=== PATIENT | male | born 1990 | race Caucasian/White ===

== ENCOUNTER → 2020-04-03 13:07 | Outpatient (CLI) | payer OTHER, SELFPAY ==
[2020-04-04 14:54] LABS: Covid-19 Nasal PCR Sendout Lex NOT DETECTED
== END ==
PROVIDERS: Visit Provider Nurse Practitioner Family
DX: Z20.828 Contact with and (suspected) exposure to other viral communicable diseases (principal)
CPT/HCPCS: U0004

== ENCOUNTER 2020-07-23 14:20 | Emergency (ER) | payer OTHER, SELFPAY ==
[2020-07-23 14:45] VITALS: BP 117/86; PULSE 70; RESP 16; TEMP 36.6; O2SAT 100; BMI 28.1
--- NOTE | 2020-07-23 14:57 | HMH.EDUTC ---
[facility] Disposition Clinical Impression: Bronchitis Disposition: Home, Self-Care Condition on Discharge: Good Instructions: Acute Bronchitis, DI for Acute Bronchitis Additional Instructions: Drink plenty of fluids. Take tylenol or ibuprofen for pain or fever. Take the medications as directed. Follow up with your regular doctor. GO TO THE ER FOR ANY WORSENING SYMPTOMS Prescriptions: methylPREDNISolone [Medrol] 4 mg PO DIRECTED 6 Days #21 tab.ds.pk Transmission Status: Received by [id number] Benzonatate [Tessalon Perle 100mg Cap] 100 mg PO TIDP PRN #30 cap PRN Reason: Cough Transmission Status: Received by [id number] Azithromycin [Z-Gerald 250mg Tab*] 250 mg PO UD DOSE PK #6 tab Transmission Status: Received by [id number] Referrals: PCP,No [Primary Care Provider] - Time of Disposition: 15:06 Medical Decision Making - Medical Records Medical records reviewed: No: I reviewed the patient's medical records. - Rocky Inquiry Pt receiving controlled substance: No Vital Signs: 07/23/20 14:45 07/23/20 15:16 Temperature 97.8 F 97.8 F Temperature Source Oral Pulse Rate 70 Pulse Rate [Right Brachial] 70 Respiratory Rate 16 16 Blood Pressure 117/86 Blood Pressure [Right Arm] 117/86 Blood Pressure Mean [Right Arm] 96 Blood Pressure Source [Right Arm] Automatic Cuff Blood Pressure Position [Right Arm] Sitting 02 Sat by Pulse Oximetry 100 Oxygen Delivery Method Room Air Orders (Tests/Meds): ORDERS Category Date Time Status Covid-19 Nasal PCR Sendout Mayur Routine Lab 07/23/20 14:40 Received [facility] HPI - General Stated complaint: soa, cough, chills, loss of appetite, tired, sore Time Seen by Provider: 07/23/20 14:58 Mode of Arrival: Ambulatory Source of Information: Patient Limitations: No Limitations Description of Symptoms (Recalled from Triage Doc. by RN): PATIENT C/O SOA WITH ACTIVITY, CHILLS, COUGH, MUSCLE ACHES, AND LOSS OF APPETITE X 1 MONTH WITH WORSENING OF SYMPTOMS OVER THE LAST FEW DAYS HEENT Symptoms (Recalled from RN notes): Yes Resp Symptoms (Recalled from RN notes): Yes Skin Symptoms (Recalled from RN notes): No MS Symptoms (Recalled from RN notes): Yes Functional Status (Recalled from RN notes): WNL - History of Present Illness Provider Complaint: He states that he has been coughing and feeling bad for the past couple of weeks. 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 - Related Data Previous Rx's Medication Instructions Recorded Azithromycin [Z-Gerald 250mg Tab*] 250 mg PO UD DOSE PK #6 tab 07/23/20 Benzonatate [Tessalon Perle 100mg 100 mg PO TIDP PRN #30 cap 07/23/20 Cap] methylPREDNISolone [Medrol] 4 mg PO DIRECTED 6 Days #21 07/23/20 tab.ds.pk Allergies Allergy/AdvReac Type Severity Reaction Status Date / Time penicillin G [PENICILLIN G] Allergy Mild Verified 07/23/20 15:02 - Worker's Comp Is this a Worker's Comp case?: No [facility] History - Hepatitis A Screen Drug use history?: No High risk sexual behaviors?: No History of sexually transmitted infection?: No Currently employed?: No Childcare worker?: No Do you have indoor plumbing?: Yes Do you have electricity?: Yes Attestation statement:: This patient has been screened for Hepatitis A risk factors. I have reviewed the patient's past medical history: Yes - Social History Alcohol Intake: never Occupational Status: other ROS Obtained: Yes All systems reviewed & no additional complaints - Constitutional Constitutional: Reports system reviewed and no additional complaints, except as docu, Reports chills - Eyes Eyes: Reports system reviewed and no additional complaints, except as docu - ENT Ears, Nose, Mouth, and Throat: Reports system reviewed and no additional complaints, except as docu - Cardiovascular Cardiovascular: Reports system reviewed and no additional complaints, exc
[2020-07-23 15:16] VITALS: BP 117/86; PULSE 70; RESP 16; TEMP 36.6; O2SAT 100
[2020-07-26 06:30] LABS: Covid-19 Nasal PCR Sendout Lex NOT DETECTED
== END 2020-07-23 15:20 | disposition home or self-care (01) ==
PROVIDERS: Emergency Provider Nurse Practitioner Family
DX: Z20.828 Contact with and (suspected) exposure to other viral communicable diseases (principal); J20.9 Acute bronchitis, unspecified
CPT/HCPCS: 99201; U0004

== ENCOUNTER 2020-07-26 11:14 | Emergency (ER) | payer OTHER, SELFPAY ==
--- NOTE | 2020-07-26 11:10 | ECG_ITS ---
APPROVED REPORT Exam: Resting ECG HR:75 bpm ECG Measurements Heart Rate 75 AXES OH 156 P 65 QRSd 88 QRS 111 QT 358 T 50 QTc 399 Conclusion Normal sinus rhythm Right axis deviation Abnormal ECG Electronically signed by : Jeremy Rodriguez, 07/27/2020 07:10:42
[2020-07-26 11:14] VITALS: BP 119/72; BP 155/79; PULSE 75; PULSE 82; RESP 16; RESP 18; TEMP 36.9; O2SAT 97; O2SAT 98; BMI 31.6
--- NOTE | 2020-07-26 11:20 | XR_ITS ---
PROCEDURE: XR CHEST 2V CLINICAL HISTORY: left ant rib pain, cough COMPARISON: No exams were available for comparison FINDINGS: The cardiomediastinal silhouette and pulmonary vascularity are within normal limits. The lungs are clear without infiltrates, suspicious nodules, or pleural effusions. Calcified granuloma is present in the left upper lobe No acute bony abnormalities. IMPRESSION: No acute findings. Dictated by: Glynn Liz MD 07/26/2020 12:26 Glynn Liz MD in [place] 07/26/2020 12:26
--- NOTE | 2020-07-26 11:21 | HMH.EDCP ---
ED Disposition Clinical Impression: Chest wall pain Disposition: Home, Self-Care Condition on Discharge: Good Instructions: DI for Atypical Chest Pain Referrals: Sebas Adam MD [Staff Physician] - 3 days - Critical Care Critical Care Time: No Attestation: On , the high probability of a clinically significant, sudden or life threatening deterioration of the following system(s) required my full and direct attention, intervention and personal management. The time I documented below is in addition to time spent performing reported procedures but includes the following listed in this critical care notation. Medical Decision Making - Medical Records Medical records reviewed: Yes: I reviewed the patient's medical records. - Rocky Inquiry Pt receiving controlled substance: No Vital Signs: 07/26/20 11:14 Temperature 98.5 F Temperature Source Oral Pulse Rate [Left Radial] 75 Respiratory Rate 16 Blood Pressure [Right Arm] 119/72 Blood Pressure Mean [Right Arm] 87 Blood Pressure Source [Right Arm] Automatic Cuff Blood Pressure Position [Right Arm] Sitting 02 Sat by Pulse Oximetry 97 Oxygen Delivery Method Room Air - Lab Data Lab Results 07/26/20 11:24: WBC 15.5 H, RBC 5.07, Hgb 17.0, Hct 49.2, MCV 97.0 H, MCH 33.6 H, MCHC 34.6, RDW 13.2, Plt Count 247, MPV 8.2, Neut % (Auto) 71.5, Lymph % (Auto) 20.7, [place] % (Auto) 6.2, Eos % (Auto) 1.0, Baso % (Auto) 0.6, Neut # (Auto) 11.1 H, Lymph # (Auto) 3.2, [place] # (Auto) 1.0, Eos # (Auto) 0.2, Baso # (Auto) 0.1, Total Counted 100, Neutrophils % (Manual) 67, Lymphocytes % (Manual) 27, Monocytes % (Manual) 5, Eosinophils % (Manual) 1, Platelet Estimate Normal, RBC Morphology Normal 07/26/20 11:24: Sodium 140, Potassium 4.0, Chloride 103, Carbon Dioxide 28, Anion Gap 13.0, BUN 13, Creatinine 1.00, Estimated Creat Clear 169, Estimated GFR 89, Est GFR ( Amer) 108, Glucose 116 H, Calcium 9.6, Total Bilirubin 0.4, AST 33, ALT 64, Alkaline Phosphatase 54, Troponin I 0.01, Total Protein 8.4 H, Albumin 5.0, Globulin 3.4 H, Albumin/Globulin Ratio 1.5, Lipase 270 Result diagrams: 07/26/20 11:24 07/26/20 11:24 Orders (Tests/Meds): ORDERS Category Date Time Status Chest XR 2 view (NOT portable) [XR chest 2V] Stat Exams 07/26/20 11:20 Taken Troponin I Q3H Lab 07/26/20 14:30 Ordered Troponin I Q3H Lab 07/26/20 17:30 Ordered - Radiology Data #1 Image(s): Chest Image Reviewed: Yes I reviewed the patient's radiology image - ECG Data Tracing #1 EKG at 1110 shows a normal sinus rhythm with a rate of 75. No acute ST segment elevation or depression. No hyperacute T waves. Normal intervals. EKG interpreted by me. Medical Decision Narrative: Patient with EKG with no signs of acute ischemia. Troponin is negative at almost 12 hours out, no need for repeat in a patient who is lower risk given age and history. Other labs are reassuring with no signs of acute biliary obstruction or pancreatitis, no significant metabolic derangement or anemia. He does have a slight leukocytosis, but is on steroids. Chest x-ray shows no signs of pneumonia, pneumothorax, florid pulmonary edema. Discharged home to follow-up outpatient with primary care provider for further management and evaluation, consideration of cardiology outpatient consult. Suspect musculoskeletal pain from recent coughing is a possibility in addition to possible dyspepsia. At this point ACS, pulmonary embolus seems unlikely (PERC negative). Chest Pain HPI - General Stated Complaint: chest pain Time Seen by Provider: 07/26/20 11:21 Mode of Arrival: Ambulatory Source of Information: Patient Limitations: No Limitations - History of Present Illness HPI narrative: This is a 29-year-old male with no significant past medical history who presents to the emergency department for evaluation of left anterior rib pain that is worse when he lies down, has been present since around 1:30 AM this morning.
[2020-07-26 11:33] LABS: Basophils # 0.1 K/mm3 (0-0.2); Basophils % 0.6 % (0.1-2.0); Eosinophils # 0.2 K/mm3 (0.0-0.4); Hematocrit 49.2 % (42.0-52.0); Lymphocytes # 3.2 K/mm3 (0.7-4.5); Lymphocytes % 20.7 % (10-50); Mean Corpuscular HGB Conc 34.6 g/dL (31.8-35.4); Mean Corpuscular Hemoglobin 33.6 pg (27.0-31.2); Mean Platelet Volume 8.2 fl (7.4-10.4); Monocytes % 6.2 % (1.7-9.3); Neutrophils # 11.1 K/mm3 (1.8-7.8); Neutrophils % 71.5 % (37.0-80.0); Platelet Count 247 K/mm3 (142-424); Red Blood Count 5.07 M/mm3 (4.60-6.20); Red Cell Distribution Width 13.2 % (11.5-17.5); White Blood Count 15.5 K/mm3 (4.8-10.8)
[2020-07-26 11:35] LABS: Chloride 103 mmol/L (98-107)
[2020-07-26 11:36] LABS: Sodium 140 mmol/L (136-145)
[2020-07-26 11:37] LABS: MANUAL DIFFERENTIAL MANUAL DIFFERENTIAL (MANUAL DIFF)
[2020-07-26 11:38] LABS: Alanine Aminotransferase 64 U/L (12-78); Alkaline Phosphatase 54 U/L (38-126); Aspartate Amino Transferase 33 U/L (17-59); Bilirubin,Total 0.4 mg/dl (0.2-1.3); Blood Urea Nitrogen 13 mg/dl (9-20); Carbon Dioxide 28 mmol/L (22.0-30.0); Creatinine Clearance Estimated 169 mL/min (50-200); Estimated Glomerular Filt Rate 89 ml/min (>60); GFR (African American) 108 ML/MIN (>60)
[2020-07-26 11:39] LABS: Albumin/Globulin Ratio 1.5 (1.1-1.8); Calcium 9.6 mg/dl (8.4-10.2); Globulin 3.4 g/dL (1.3-3.2); Glucose 116 mg/dl (74-100); Lipase 270 U/L (23-300); Total Protein,Serum 8.4 g/dl (6.3-8.2)
[2020-07-26 11:42] LABS: Eosinophils % 1 % (0-3); Lymphocytes % 27 % (10-50); Monocytes % 5 % (2-9); Neutrophils % 67 % (42-76); Platelet Estimate Normal; RBC Morphology Normal; Total Cells Counted 100
[2020-07-26 11:44] VITALS: BP 123/71; PULSE 93; RESP 16; O2SAT 96
[2020-07-26 11:53] LABS: Troponin I 0.01 ng/ml (0.00-0.034)
[2020-07-26 12:33] VITALS: BP 123/71; PULSE 78; RESP 20; TEMP 36.9; O2SAT 96
== END 2020-07-26 12:34 | disposition home or self-care (01) ==
PROVIDERS: Emergency Provider Emergency Medicine
DX: J06.9 Acute upper respiratory infection, unspecified (principal); Z88.0 Allergy status to penicillin
CPT/HCPCS: 71046; 80053; 83690; 84484; 85007; 85025; 93005; 99283

== ENCOUNTER → 2023-06-02 09:19 | Outpatient (CLI) | payer OTHER, SELFPAY ==
--- NOTE | 2023-06-02 09:29 | XR_ITS ---
FINAL REPORT CLINICAL HISTORY: Right foot and ankle pain FINDINGS: RIGHT ANKLE: Three weightbearing views of the right ankle were obtained. There is no acute fracture or dislocation. The joint spaces and mortise are intact. There is no soft tissue abnormality. IMPRESSION: No acute process. Reviewed, Interpreted and Dictated by Fred Salmon III, MD Transcribed by Silvestre Garcia Authenticated and [facility]
--- NOTE | 2023-06-02 09:29 | XR_ITS ---
FINAL REPORT CLINICAL HISTORY: Right foot and ankle pain FINDINGS: 3 weightbearing views of the right foot were obtained. There is no acute fracture or dislocation. The joint spaces are intact. The soft tissues are unremarkable. IMPRESSION: No acute process. Reviewed, Interpreted and Dictated by Fred Salmon III, MD Transcribed by Silvestre Garcia Authenticated and [facility]
== END ==
LOC: RAD 09:20
PROVIDERS: PCP Nurse Practitioner; Visit Provider Nurse Practitioner Family
DX: M25.571 Pain in right ankle and joints of right foot (principal); M79.671 Pain in right foot
CPT/HCPCS: 73610; 73630

== ENCOUNTER 2023-06-04 11:55 | Outpatient (RCR) | payer OTHER, SELFPAY | END 2023-06-04 14:00 | disposition home or self-care (01) | LOC: PT 11:55 | PROVIDERS: Visit Provider Nurse Practitioner Family | DX: M79.671 Pain in right foot (principal); M76.71 Peroneal tendinitis, right leg | CPT/HCPCS: 97760 ==

== ENCOUNTER → 2023-07-23 14:42 | Outpatient (CLI) | payer OTHER, SELFPAY ==
--- NOTE | 2023-07-23 14:42 | MR_ITS ---
FINAL REPORT CLINICAL HISTORY: ankle pain COMPARISON: None FINDINGS: Multiplanar MR imaging of the right ankle was performed without contrast. There is a large signal abnormality in the posterior and medial talus, somewhat rounded in appearance, measuring 2.2 cm in diameter. This abnormal signal extends to the posterior medial talar dome. This is unusual in appearance and of uncertain etiology, but may represent avascular necrosis, osteonecrosis, or a large osteochondral defect. There is also abnormal increased signal in the tarsal navicular midportion, also slightly rounded in appearance, which once again may represent osteochondral defects, subchondral cysts, AVN or osteonecrosis. The ligaments are intact without evidence of injury. The flexor and extensor tendons are intact. The posterior plantar aponeurosis is intact. No significant joint effusion is seen. The musculature is intact. There is no evidence of soft tissue mass or cyst. IMPRESSION: Large signal abnormality in the talus as described, which may represent avascular necrosis, osteonecrosis, or a large osteochondral defect. There is also abnormal increased signal in the midportion of the tarsal navicular, as described. Once again these may represent subchondral cysts, may be degenerative or represent AVN or osteochondrosis. Reviewed, Interpreted and Dictated by Davi Alvarez MD Transcribed by Rosalind Mehta Authenticated and [facility]
--- NOTE | 2023-07-23 14:42 | MR_ITS ---
FINAL REPORT CLINICAL HISTORY: foot pain COMPARISON: None FINDINGS: Multiplanar MR imaging of the right foot was performed without contrast. There are 2 small foci of increased T2 signal in the tarsal navicular midportion, that may represent small subchondral cysts, possibly degenerative, or may be incidental. There is also a large signal abnormality in the posterior medial talus, somewhat rounded in appearance, measuring 2.2 cm in diameter. This extends to the posterior medial talar dome. The flexor and extensor tendons are intact. The musculature is intact. The plantar aponeurosis is intact. No soft tissue mass or cyst is identified. IMPRESSION: 2 small foci of increased T2 signal in the midportion of the tarsal navicular, that may represent small subchondral cysts, or may be incidental. There is also a large signal abnormality in the posterior medial talus, somewhat rounded in appearance, measuring 2.2 cm in diameter as described. This is of uncertain etiology and unusual appearance, but may represent a large osteochondral lesion, avascular necrosis or osteonecrosis. Reviewed, Interpreted and Dictated by Davi Alvarez MD Transcribed by Rosalind Mehta Authenticated and [facility]
== END ==
LOC: RAD 14:42
PROVIDERS: PCP Physician Assistant; Visit Provider Podiatrist
DX: M25.571 Pain in right ankle and joints of right foot (principal); M76.61 Achilles tendinitis, right leg; M79.671 Pain in right foot
CPT/HCPCS: 73718; 73721

== ENCOUNTER 2023-07-30 17:00 | Outpatient (RCR) | payer OTHER, SELFPAY ==
--- NOTE | 2023-06-15 16:00 | HMH.PTOPEV ---
PT Outpatient Evaluation Rehab PT Outpatient Evaluation Start: 06/15/23 15:04 Freq: Status: Active Protocol: Document 06/15/23 15:05 ACECAPO (Rec: 06/15/23 16:00 PDESEROUX [id number]) E-signed By Brian Saxena, PT Outpatient Therapy Subjective History Subjective History Pt. is a 32 year old male who presents to [facility] Outpatient Physical Therapy Services in [place] for the initial evaluation this date(06/15/23) w/ c/o chronic and constant RLE ankle/ft./calf P!, instability, and a limp of insidious onset for 1 year that has progressively gotten worse over the last few weeks. Recent diagnostic imaging indicates pes planus per pt. report. Pt. reports having some symptoms relief w/ CAM bt ., heel wedge, and prescribed Mobic. Pt. reports symptoms worsen w/ prolonged standing and ambulating, basically being on my feet. Pt. 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 Pt. RTMD(Dr. Maldonado) at the end of this month. Current medications include Mobic. PMH includes S/P RLE knee cartilage replacement. New diagnosis of cancer in past 12 No months? Chief Complaint Pain,Spasms,Stiff,Gives out/ Unstable,Weakness Symptom Type Ache,Throb,Sharp,Stabbing, Burning,Shooting Symptoms Relieved By Rest/Positioning,Ice,Brace/ Support,Prescription Meds Symptoms Aggravated By Standing,Bending/Stooping, Physical Activity,Twisting, Walking Prior Functional Limitations None Current Functional Limitations Housework,Standing,Recreation Activity,Walking,Stairs, Bending/Stooping Symptom Description Constant and Continuous, Activity Dependent Level of pain today (0-10) 4 Pain scale - at its best (0-10) 3 Pain scale - at its worst (0-10) 10 Ankle/Foot Eval Gait Observation General Gait Pattern Observation Antalgic Gait,Decrease Weight Bear (R),Decrease Stride Lngth (L) Assistive Device Ambulation Assistive Device None Palpation Tenderness right Ankle/Foot Palpation Findings Tenderness,Trigger Point Ankle/Foot Palpation Overall Comment grade 4 +TTP to B/L gastroc mm bellies, soleus, achilles, post. tib. tendon ATF TTP positive PTF TTP positive CF TTP negative Deltoid ligament TTP negative ROM Ankle/Foot Dorsiflexion w/Knee Extended +6 Active Range Motion (degrees) Ankle/Foot Dorsiflexion w/Knee Extended -3 Passive Range (degrees) Ankle/Foot Plantar Flexion Active Range WNL of Motion (degrees) Ankle/Foot Eversion Active Range of 4 Motion (degrees) Ankle/Foot Eversion Passive Range of 8 Motion (degrees) Ankle/Foot Inversion Active Range of 13 Motion (degrees) Ankle/Foot Inversion Passive Range of 17 Motion (degrees) Ankle/Foot ROM Limitations Soft Tissue Tightness,Muscle Tone,Pain Great Toe ROM Reason Not Measured Within Functional Limits Accessory Movements Ankle Accessory Movements that Elicit Talar Distraction,Talar Symptoms Compression MMT right Ankle Dorsiflexion Strength Grade 4- Good- Ankle Plantarflexion Strength Grade 4- Good- Foot Eversion Strength Grade 3+ Fair+ Foot Inversion Strength Grade 3+ Fair+ Ankle Dorsiflexors Muscle Tone Severe Hypertonicity Description Special Tests Ankle Anterior Drawer Test Positive Right Talar Tilt Test Positive Right Ankle Posterior Drawer Test Positive Right Neuro tests Achilles Tendon (R) 2+ Achilles Tendon (L) 2+ normal sensation to monofilament Yes Outpatient Therapy Assessment Impairments Problems/Impairmments Palpation Tenderness,Impaired Range of Motion,Impaired Strength,Impaired Endurance, Impaired Gait Pattern,Impaired Walking,Impaired Standing, Impaired Stair Climbing, Impaired Incline Stepping, Impaired Stepping on Uneven Surface,Impaired Recreational Activities,Impaired Work Activities,Subjective C/O Pain ,Impaired Self Care/Self Management Prognosis Rehab Potential Good Comment w/ HEP compliancy Clinical Impression Consistent with Diagnosis Yes Consistent with RLE Achilles Tendinitis Short Term Goals Number of Weeks 2 Decreased Palpation Tenderness Yes: grade 1-2 +TTP to TTP assessment above Decrease Subjective C/O Pain Yes: worse:12/17 Patient to be Ind w/ HEP Yes Intermediate Goals Number of Weeks 4-6 Decreased Palpation Tenderness Yes: grade 1 +TTP to TTP assessment above Increase Range of Motion Yes: RLE ankle/ft. A/PROM WFL grossly Increase Strength Yes: 4+ to 5/5 RLE ankle/ft. MMT scores grossly Improve Gait Pattern without Assistive Yes Device Increase Ability to Walk Yes Increase Ability to Stand Yes Improve Ability to Climb Stairs Yes Improve Incline Stepping Ability Yes Improve Ability to Step on Uneven Yes Surfaces Improve Tolerance to Work Activities Yes Improve LEFI Score Yes Decrease Subjective C/O Pain Yes: worse:-09/19 Improve Self Care/Self Management Yes Patient to be Ind w/ Advanced HEP Yes Outpatient Therapy Plan of Care Treatment Plan May Include Therapeutic Exercise Including Home Yes Exercise Program Manual Therapy Techniques Yes Neuromuscular Re-education Yes Therapeutic Activities to Return to Yes Previous Functional/Work Level Gait Training Yes ADL/Self Care Education Yes Dry Needling Yes Thermal Modalities Yes Electrical Stimulation Yes Ultrasound/Phonophoresis Yes Iontophoresis Yes Vasopneumatic Compression Pump Yes Massage Yes Eval/Re-Eval Yes Frequency Times per week 2 Duration Number of Weeks 4-6 Addendums This patient is a candidate for social No or vocational rehab? Patient/Guardian verbally acknowledges Yes understanding of treatment program and consents to further treatment? Patient/Guardian verbally acknowledges Yes understanding of diagnosis, prognosis and goals for treatment? Eval Complexity PT Charges 57953 - Low Complexity Shoulder/Elbow Eval Shoulder Objective Measurements Elbow Objective Measurements PHYSICIAN CERTIFICATION: I certify the specified therapy services for Michael Patrick are required, authorized, and reviewed every 30 days.
== END 2023-08-24 11:36 | disposition home or self-care (01) ==
LOC: PT 17:00
PROVIDERS: PCP Nurse Practitioner; Visit Provider Nurse Practitioner Family
DX: M79.671 Pain in right foot (principal); M76.61 Achilles tendinitis, right leg
CPT/HCPCS: 97010; 97014; 97035; 97110; 97140; 97163; 97164; G0283

== ENCOUNTER 2023-08-17 16:32 | Outpatient (CLI) | payer BC, SELFPAY ==
--- NOTE | 2023-08-17 16:57 | XR_ITS ---
PROCEDURE INFORMATION: Exam: XR Chest Exam date and time: 08/17/2023 4:57 PM Age: 32 years old Clinical indication: Cough; Additional info: Cough/ congestion TECHNIQUE: Imaging protocol: Radiologic exam of the chest. Views: 2 views. COMPARISON: CR XR CHEST 2V 07/26/2020 11:47 AM FINDINGS: Lungs: Unremarkable. No consolidation. Pleural spaces: Unremarkable. No pleural effusion. No pneumothorax. Heart/Mediastinum: Unremarkable. No cardiomegaly. Bones/joints: Unremarkable. IMPRESSION: No acute findings.
--- NOTE | 2023-08-17 17:06 | ECG_ITS ---
APPROVED REPORT Exam: Resting ECG HR:73 bpm ECG Measurements Heart Rate 73 AXES TX 168 P 66 QRSd 90 QRS 109 QT 355 T 55 QTc 381 Conclusion SINUS RHYTHM RIGHT AXIS DEVIATION [QRS AXIS > 100] ABNORMAL ECG UNCONFIRMED REPORT Electronically signed by : Jeremy Rodriguez MD 08/18/2023 20:41:42
[2023-08-17 17:07] LABS: Basophils # 0.1 K/mm3 (0-0.2); Basophils % 1.7 % (0.1-2.0); Eosinophils # 0.2 K/mm3 (0.0-0.4); Eosinophils % 3.1 % (0.1-12.0); Hematocrit 45.1 % (42.0-52.0); Hemoglobin 16.1 g/dL (14.1-18.0); Lymphocytes # 2.7 K/mm3 (0.7-4.5); Lymphocytes % 41.1 % (10-50); Mean Corpuscular HGB Conc 35.8 g/dL (31.8-35.4); Mean Corpuscular Hemoglobin 33.9 pg (27.0-31.2); Mean Corpuscular Volume 94.7 fl (80-94); Mean Platelet Volume 8.2 fl (7.4-10.4); Monocytes # 0.5 K/mm3 (0.1-1.0); Monocytes % 6.8 % (1.7-9.3); Neutrophils # 3.1 K/mm3 (1.8-7.8); Neutrophils % 47.4 % (37.0-80.0); Platelet Count 174 K/mm3 (142-424); Red Blood Count 4.76 M/mm3 (4.60-6.20); Red Cell Distribution Width 13.4 % (11.5-17.5); White Blood Count 6.6 K/mm3 (4.8-10.8)
[2023-08-17 17:43] LABS: Alanine Aminotransferase 75 U/L (12-78); Albumin Level 4.5 g/dl (3.5-5.0); Albumin/Globulin Ratio 1.7 (1.1-1.8); Alkaline Phosphatase 65 U/L (38-126); Anion Gap 10.2 mEq/L (5-15); Aspartate Amino Transferase 49 U/L (17-59); Bilirubin,Total 0.3 mg/dl (0.2-1.3); Blood Urea Nitrogen 16 mg/dl (9-20); Carbon Dioxide 25 mmol/L (22.0-30.0); Chloride 105 mmol/L (98-107); Estimated Glomerular Filt Rate 98 ml/min (>60); GFR (African American) 119 ML/MIN (>60); Globulin 2.6 g/dL (1.3-3.2); Glucose 93 mg/dl (74-100); Potassium 4.2 mmoL/L (3.5-5.1); Sodium 136 mmol/L (136-145); Total Protein,Serum 7.1 g/dl (6.3-8.2)
[2023-08-17 17:49] LABS: C-Reactive Protein 1.9 mg/L (0-4)
[2023-08-17 18:22] LABS: Erythrocyte Sedimentation Rate 9 mm/hr (0-15)
[2023-08-17 18:33] LABS: Vitamin B12 533 pg/mL (239-931)
[2023-08-24 16:13] LABS: 1,25 Dihydroxy Vitamin D 49 pg/mL (.); 1,25-Dihydroxy, Vitamin D-2 <10 pg/mL (.); 1,25-Dihydroxy, Vitamin D-3 49 pg/mL (.)
[2023-08-26 10:45] LABS: Cotinine 459.7; Nicotine 19.3
== END 2023-08-17 23:59 ==
LOC: LAB 16:33
PROVIDERS: PCP Nurse Practitioner; Visit Provider Podiatrist
DX: Z01.818 Encounter for other preprocedural examination (principal)
CPT/HCPCS: 36415; 71046; 80053; 80323; 82607; 82652; 85025; 85651; 86140; 93005

== ENCOUNTER 2023-09-18 06:58 | Outpatient (CLI) | payer BC, SELFPAY ==
--- NOTE | 2023-09-18 06:59 | CT_ITS ---
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 A noncontrast coronary calcium scan was performed. A CT attenuation threshold of 130 Hounsfield units (HU) was used for the detection of calcium in contiguous voxels of 1 sq mm in area to be counted as individual lesions. Bolus tracking in the ascending aorta with a threshold of 180 HU was performed. Immediately afterwards, ECG synchronized cardiac CT was then performed from the cardiac base to apex using retrospective gating with ECG tube current modulation. A total of 85 mL of Isovue 370 mg/mL contrast medium was administered at 5 mL/sec followed by a saline flush using a biphasic injection protocol. A tube voltage of 120 KVp was used. The patient received the following medications prior to the cardiac CT. 50 mg of oral metoprolol 15 mg of oral ivabradine 0.8 mg of sublingual nitroglycerin The average heart rate at the time of acquisition was 51 bpm and regular. Image Reconstruction Transaxial images were reconstructed at 0.67 mm slide thickness. Data was reviewed interactively on an advanced workstation capable of 2 and 3-dimensional displays in all conventional reconstruction formats, including multiplanar reformations, maximum intensity projections, curved multiplanar reformations, and volume rendered reconstructions. When applicable, selected routine images describing the relevant coronary anatomy and pathology were saved and sent to PACS. Complications None Technical Quality Overall image quality was good. Coronary artery opacification was adequate. Total DLP (Dose-Length Product) is 1442.0 mGy-cm. The reported value represents the total of one or more individual components during the CT acquisition of this date and at this time, and as such, the same value may appear in more than one CT report depending on the interpreting/reporting physicians. COMPARISON None FINDINGS CT Coronary Calcium Scoring LMA (Left Main Artery) = 0 LAD (Left Anterior Descending) = 0 LCX (Left Coronary Circumflex) = 0 RCA (Right Coronary Artery) = 0 Total Calcium Score = 0 using the AJ-130 method. The interpretation of the calcium heart score is based on the following continuum*: 0 = no calcified plaque detected (risk of coronary artery disease is very low ??? less than 5%) 1-10 = calcium detected in extremely minimal levels (risk of coronary diseases is still low ??? less than 10%) 11-100 = mild levels of plaque detected with certainty (mild or minimal narrowing of heart arteries is likely) 101-400 = definite,at least moderate levels of plaque detected (relatively high risk of a heart attack within 3-5 years) >401-999 = extensive levels of plaque detected (high risk of heart attack, high levels of vascular disease are present, high likelihood of at least one significant coronary narrowing) *The calcium heart score quantifies the burden of coronary calcification/plaque in the coronary arteries. The calcium heart score is not able to evaluate the presence or burden of non-calcified (i.e. soft) plaque. There is no identifiable calcification in the aortic valve, mitral annulus or mitral valve, pericardium, or myocardium. Coronary CT Angiography The coronary arterial system is right dominant. Quantitative Stenosis Grading: Left Main (LM): The left main originates normally from the left sinus of Valsalva. The LM bifurcates into the left anterior descending artery and left circumflex artery. The LM is patent with no evidence of atherosclerosis. Left Anterior Descending (LAD) and Diagonal Branches: The LAD gives off 3 diagonal branch(es). The LAD and its branches are patent with no evidence of atherosclerosis. There is no evidence of LAD bridge. Left Circumflex (LCX) and Obtuse Marginals (OM): The LCX gives off 2 Obtuse Marginal (OM) branches. The LCX and its branches are patent with no evidence of atherosclerosis. Right Coronary Artery (RCA): The RCA originates normally from the right sinus of Valsalva. The RCA gives off a posterior descending artery (PDA) and posterolateral (PL) branches. The RCA and its branches are patent with no evidence of atherosclerosis. Non-Coronary Cardiac Findings: Analysis of the left ventricular (LV) structure and function was performed after 3-D reconstruction of the LV from axial images, with user-corrected automatic contouring for assessment of LV volumes and user-defined reconstruction from oblique planes for measurement of 3-D cardiac structure and function. LVEDV: 233 mL LVESV: 113 mL SV: 120 mL LVEF: 52% -The left ventricle is normal in size with normal left ventricular systolic function. -There is no left atrial appendage filling defect. Two right pulmonary veins and two left pulmonary veins drain normally into the left atrium. -No pericardial thickening or calcification. -Central and branch pulmonary arteries in the [id number] are unremarkable. -Thoracic aorta within the visualized thoracic aortic-branches in the [id number] is unremarkable. Extracardiac Structures No significant extra-cardiac findings. Note, however, that this study is focused on the cardiac findings. IMPRESSION -No coronary calcification with an Agatston score = 0 using the AJ-130 method. -No evidence of significant flow-limiting atherosclerosis of the coronary arteries. -No coronary anomalies are noted. -CAD-RADS 0. Management recommendations per ACC/AHA guidelines*, as clinically appropriate. *Recommendations: CAD RADS 0: Reassurance. Consider non-atherosclerotic causes of chest pain. CAD RADS 1: Consider non-atherosclerotic causes of chest pain. Consider preventive therapy and risk factor modification. CAD RADS 2: Consider non-atherosclerotic causes of chest pain. Consider preventive therapy and risk factor modification, particularly for patients with nonobstructive plaque in multiple segments. CAD RADS 3: Consider further functional testing. Consider symptom-guided anti-ischemic and preventive pharmacotherapy as well as risk factor modification per published guideline statements. CAD RADS 4A: Consider further functional testing or invasive coronary angiography with revascularization per published guideline statements. Consider symptom-guided anti-ischemic and preventive pharmacotherapy as well as risk factor modification per published guideline statements. CAD RADS 4B: Invasive coronary angiography recommended with revascularization per published guideline statements. Consider symptom-guided anti-ischemic and preventive pharmacotherapy as well as risk factor modification per published guideline statements. CAD RADS 5: Consider invasive angiography and/or viability assessment with revascularization per published guideline statements. Consider symptom-guided anti-ischemic and preventive pharmacotherapy as well as risk factor modification per published guideline statements. CRITICAL RESULT None COMMUNICATION Per this written report The coronary and cardiac findings of this CCTA were reviewed, reported, and signed by Bala Pedroza MD (Logistics Operations Director) Conclusion Electronically signed by : Dipika Pedroza MD 09/21/2023 13:58:19
[2023-09-18 07:20] VITALS: BP 123/73; PULSE 68; RESP 18; TEMP 36.4; O2SAT 98
[2023-09-18] MEDS: METOPROLOL TARTRATE 50MG TABLET *IVABRADINE+METOPROLOL REGIMINE 50 MG PO (07:23)
[2023-09-18] MEDS: IVABRADINE HCL 7.5MG TABLET *IVABRADINE+METOPROLOL REGIMINE 15 MG PO (07:23)
[2023-09-18 07:29] VITALS: BMI 36.6
[2023-09-18 07:44] LABS: Chloride 105 mmol/L (98-107); Sodium 136 mmol/L (136-145)
[2023-09-18 07:45] LABS: Potassium 4.4 mmoL/L (3.5-5.1)
[2023-09-18 07:48] LABS: Anion Gap 8.4 mEq/L (5-15); Blood Urea Nitrogen 14 mg/dl (9-20); Calcium 8.7 mg/dl (8.4-10.2); Carbon Dioxide 27 mmol/L (22.0-30.0); Creatinine Clearance Estimated 230 mL/min (50-200); Estimated Glomerular Filt Rate 112 ml/min (>60); GFR (African American) 136 ML/MIN (>60); Glucose 110 mg/dl (74-100)
[2023-09-18 08:06] VITALS: BP 138/96; PULSE 60; RESP 18; O2SAT 98
[2023-09-18] MEDS: NITROGLYCERIN 0.4MG SL TABLET 0.800000000000000044 MG SL (08:06)
[2023-09-18 08:10] VITALS: BP 140/98; PULSE 63; RESP 18; O2SAT 98
[2023-09-18 08:15] VITALS: BP 138/90; PULSE 65; RESP 16; O2SAT 98
[2023-09-18 08:29] VITALS: BP 130/77; PULSE 70; RESP 18; O2SAT 98
[2023-09-18] MEDS: IOPAMIDOL-370 (76%);100ML BOTTLE 75 ML IV (08:37)
[2023-09-18] MEDS: 0.9 % SODIUM CHLORIDE 50 ML VIAL IV (08:37)
[2023-09-18 08:44] VITALS: BP 123/79; PULSE 57; RESP 18; O2SAT 98
== END 2023-09-18 08:47 | disposition home or self-care (01) ==
PROVIDERS: PCP Nurse Practitioner; Visit Provider Nurse Practitioner
DX: R94.31 Abnormal electrocardiogram [ECG] [EKG] (principal)
CPT/HCPCS: 75571; 75574; 80048; Q9967

== ENCOUNTER 2023-10-14 06:58 | Day surgery (SDC) | payer BC, SELFPAY ==
[2023-10-12 13:01] VITALS: BMI 36.6
[2023-10-14] VITALS (10 sets, daily range): BP systolic 114–166; BP diastolic 68–111; PULSE 82–93; RESP 16–20; TEMP 36.2–43; O2SAT 91–99
--- NOTE | 2023-10-14 | XR_ITS ---
FINAL REPORT CLINICAL HISTORY: 4.56 mgy FT 1:19 FINDINGS: FLUOROSCOPY LESS THAN 1 HOUR HISTORY: Fluoroscopy guidance. Fluoroscopic guidance was provided for right foot/ankle ORIF. A single spot film was obtained. A total of 1:19 minutes of fluoroscopy time were used. Total DAP: 4.56 mGy IMPRESSION: As above. Reviewed, Interpreted and Dictated by Fred Salmon III, MD Transcribed by Jazlyn Dos Santos Authenticated and [facility]
--- NOTE | 2023-10-14 | XR_ITS ---
FINAL REPORT CLINICAL HISTORY: FOOT AND ANKLE IN OR 4.56 mgy FT 1:19 FINDINGS: FLUOROSCOPY LESS THAN 1 HOUR HISTORY: Fluoroscopy guidance. Fluoroscopic guidance was provided for right ankle/foot ORIF. 2 spot films were obtained. A total of 1:19 minutes of fluoroscopy time were used. Total DAP: 4.56 mGy IMPRESSION: As above. Reviewed, Interpreted and Dictated by Fred Salmon III, MD Transcribed by Jazlyn Dos Santos Authenticated and . [facility]
--- NOTE | 2023-10-14 07:51 | XR_ITS ---
FINAL REPORT CLINICAL HISTORY: PRE OP ORDER COMPARISON: 08/17/2023 FINDINGS: A single portable view of the chest was obtained. The heart size and pulmonary vascularity are within normal limits. The mediastinum is within normal limits. No acute pulmonary abnormality is identified. The bony thorax is intact. IMPRESSION: No active cardiopulmonary disease. Reviewed, Interpreted and Dictated by Fred Salmon III, MD Transcribed by Jazlyn Dos Santos Authenticated and [facility]
[2023-10-14] MEDS: LACTATED RINGERS 1000ML 1,000 ML 25 ML IV (08:13)
--- NOTE | 2023-10-14 09:18 | P.PNANES_ITS ---
[facility] Disclaimer: The information contained in this section may have been updated after the patient was seen, as this information can be updated by other users. Medical History No significant active problems Surgical History History of eye surgery History of knee surgery Family History Other No significant family history Social History (Updated 10/14/23 @ 08:11 by Prachi Fountain RN) Smoking Status: Current every day smoker alcohol intake: current substance use type: denies use current occupational status: employed Travel in the last 8 weeks: None [facility] Anesthesia Checklist Patient Identification Patient Identification: Arm Band, Family and Verbal (Name & ) Structural Data Admitted From: Home Planned Operative Procedure/s: ORIF Rt. ankle Fx Consent for Planned Operative Procedure(s) Verified: Yes Verified Documents: Surgical Consent and History and Physical NPO Status Verified Time NPO: 23:30 Chart Verification Results Verified: CBC, BMP, ECG and Chest Xray Additional verifications Patient : No Anesthesia Reactions: No Hx Blood Transfusions: No Blood Transfusion Reaction: No Cardiovascular Assessment Heart Sounds: S1 & S2 Pulse Rhythm: Irregular Peripheral Edema: No Airway Assessment Mallampati Score:: Class I C-Spine Mobility Assessed: Yes (FROM) TMJ Mobility Assessed: Yes Dentition: Poor Dentition (Most missing on top; severely caried, broken teeth present. Nothing loose per pt.) Neurological Assessment Level of Consciousness: Awake, Alert, Appropriate and Follows Commands Hx Seizures: No Numbness or tingling in extremities: No Anesthesia Plan Anesthesia Risk discussed: Yes Anesthesia Plan: Verified ASA Class: III Anesthesia Type: General w/block
[2023-10-14] MEDS: CLINDAMYCIN PHOSPHATE/D5W 900 MG/50 ML PIGGYBACK 106 MG IV (09:54)
--- NOTE | 2023-10-14 11:30 | XR_ITS ---
PROCEDURE INFORMATION: Exam: XR Right Foot Exam date and time: 10/14/2023 12:26 PM Age: 33 years old Clinical indication: Condition or disease; Other: Post op , cyst , graft; Prior surgery; Surgery date: Post-operative (0-2 days); Surgery type: Cyst, graft; Additional info: Postop cyst, graft TECHNIQUE: Imaging protocol: Radiologic exam of the right foot. Views: 3 or more views. COMPARISON: CR XR FOOT RT 2V 10/14/2023 12:00 AM FINDINGS: Bones/joints: Plate and screw hardware is seen within the navicular bone. The most lateral screw appears to project beyond the lateral margin of the navicular. No acute fracture or dislocation. Bony detail is obscured by splint material. Soft tissues: No soft tissue swelling. Soft tissue detail is obscured by splint material. IMPRESSION: Plate and screw hardware within the navicular bone as described.
--- NOTE | 2023-10-14 11:30 | XR_ITS ---
PROCEDURE INFORMATION: Exam: XR Right Ankle Exam date and time: 10/14/2023 12:26 PM Age: 33 years old Clinical indication: Condition or disease; Other: Post op, cyst , graft; Prior surgery; Surgery date: Post-operative (0-2 days); Additional info: Postop cyst, graft TECHNIQUE: Imaging protocol: Radiologic exam of the right ankle. Views: 3 or more views. COMPARISON: SD XR ANKLE RT 2V 10/14/2023 12:00 AM FINDINGS: Bones/joints: No acute fracture or dislocation. Plate and screw hardware seen within the navicular bone. Ankle mortise is intact. Normal bone mineralization. Partial obscuration of bony detail by the cast. Soft tissues: No soft tissue swelling. Soft tissues obscured partially by the cast. IMPRESSION: ORIF hardware at the navicular.
--- NOTE | 2023-10-14 12:26 | P.PNANES_ITS ---
[facility] Anesthesia Record Part I Anesthesia Record I Intake, IV Amount: 1,000 Hydration: Adequate Estimated blood loss (mL): 25 Urine output (mL): 1 Blood Products used (#): none Blood Pressure: 115/68 SaO2: 94 Pulse Rate: 87 Airway Patency: Patent Respiratory Rate: 20 Temperature: 97.3 F Patient is:: Drowsy and Oral/Nasal airway (10.0) Stable to PACU at:: 12:27
--- NOTE | 2023-10-14 12:37 | P.OP_ITS ---
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 Osteochondral defect talus Posterior tibial tendinitis Right ankle synovitis Post-op Diagnosis:: Same Procedure performed:: Navicular fracture nonunion repair, open reduction internal fixation Excision/curettage of bone cyst navicular with allograft (Prodense) Excision/curettage of bone cyst talus with allograft (Cerament G) Partial excision talus Right ankle open bone biopsy Posterior tibial tendon debridement and repair Manual prep and insertion of drug delivery device (Cerament G) Right ankle synovectomy Surgeon:: Michelle Maldonado DPM MOLD REPAIR TECHNICIAN:: Other Anesthesia: GETA and regional (R regional nerve block) Estimated blood loss (mL): 40 Clinical Note:: Patient is a 32-year-old male who started having pain over a year ago to the right ankle. Conservative care has included: Modification of shoe gear, modification of activity, RICE protocol, NSAIDs, Mobic, steroid pack, formal physical therapy, home stretching. There has been improvement with Achilles but no improvement to the PT tendinitis or joint pain. Discussed surgical options including bone biopsy, curettage/bone grafting of the talus, navicular fracture nonunion repair/ORIF, PT tendon debridement and repair with possible gastroc recession versus YAHIR. Discussed depending on results of the bone biopsy he may need further intervention such as more surgery, bone stimulator. Discussed unlikely but if bone biopsy shows infection, will need antibiotic therapy. The patient has been instructed on the planned procedure, all risk versus benefits of the procedure discussed. These include but are not limited to: bleeding, infection, nerve and blood vessel damage, need for further surgery, delay in healing of soft tissue or bone, failure of bones to heal, non-union, mal-union, failure of the implant, prolonged pain and recovery, recurrence of deformity, talus collapse, worsening AVN/osteonecrosis, CPRS/RSD, DVT/PE and anesthetic complications. No guarantees were given. All questions fully answered. The patient verbalized understanding and agreed to proceed with surgery. Written consent was obtained. Operative findings:: Right talus had significant bone cyst noted to the medial posterior talus. There was some irregularity to the medial talar dome, bone biopsy taken from the site. The medial neck of the talus was soft and cystic. All cystic places were excised and curettaged. The bone defects were packed with allograft. Talus was packed with Cerament G. The navicular had a small cyst which was excised curettaged and packed with Prodense. Separate from the navicular cyst, there was a fracture nonunion at the central one third of the bone. The fracture nonunion was debrided, bone graft was inserted and the fracture was then fixated with plate and screws. The posterior tibial tendon was not ruptured. There was a longitudinal tear just inferior to the medial malleolus about 2 and half centimeters long. The split tear was debrided and repaired with suture in an abnormal baseball fashion. Ankle had significant synovitic tissue and fluid which was debrided. Operative note:: On this date and time patient was deemed an appropriate surgical candidate. Pre- op regional popliteal nerve block performed by anesthesia. With informed consent signed, the patient was taken to the operating theater. The patient was positioned supine. General anesthesia was induced. Tourniquet was applied to the right thigh. The right lower extremity was prepped and draped in normal sterile fashion. Navicular fracture nonunion repair, open reduction internal fixation: Attention was directed to the dorsal foot where an incision was mapped out over the TN joint. Full-thickness dissection with care to maintain surgical hemostasis to safely try neurovascular structures down to the level of the bone. A fracture nonunion was noted at the central one third of the navicular. Osteotome and mallet was used to open the fracture. Curette was used to debride the nonunion to good healthy bleeding bone. Area was flushed with saline. Next allograft/Prodense was inserted into the nonunion site. Fracture temporarily fixated. Intraoperative fluoroscopy utilized to confirm position of reduction. Next in standard technique, Vilex plate and screws were inserted without c omplication. Position of hardware checked on intraoperative fluoroscopy and deemed to be appropriate and stable. Excision/curettage bone cyst navicular: A small cyst was noted to the medial navicular. This was separate from the navicular fracture nonunion site. Cyst was excised and curettage. Bone was flushed. Prodense was used to pack into the defect. Open bone biopsy ankle, partial excision talus: Separate incision was made over the medial ankle full-thickness down to the bone. There is some irregularity noted to the medial talar dome. A piece of the bone was sent for bone culture and bone pathology. A partial excision talus was performed with osteotome and mallet removing the irregularity. Wound was flushed with saline. Right ankle synovectomy: There is synovitic tissue and fluid in the ankle joint. It was debrided with a rongeur 15 blade and forceps. Wound was flushed with saline. Excision/curettage bone cyst talus: A bone cyst was noted to the posterior medial talus and medial talus neck. This was separate from the bone biopsy site. Cyst was excised and curettage. Bone was flushed. Manual prep and insertion of drug delivery device (Cerament G): The drug delive ry device system was then prepared. It was inserted into the talus bone cyst site and the defect was filled. Posterior tibial tendon debridement and repair: Next attention was directed to the medial malleolus where a separate incision was made posterior to the medial mall extending along the course of the PT tendon. Full-thickness dissection performed. The tendon was evaluated and there was a longitudinal split tear noted about 2 and half centimeters long. 15 blade and forceps used to debride the tendon. A piece was sent to pathology as a specimen. Vicryl used to repair the defect with a running baseball stitch over and over fashion. Adequate gliding of the tendon was noted. Wound was flushed with saline. Deep and subcutaneous tissue was reapproximated with Vicryl. All the skin incisions were reapproximated with nylon. Skin was cleansed. The tourniquet was deflated at 130 minutes and immediate hyperemic response was noted to the digits. The wounds were cleansed. Xeroform, dry sterile dressing was then applied followed by a below knee modified Camacho posterior splint. The patient was awoken from anesthesia and transfer to recovery with vital signs stable and neurovascular status intact. Patient tolerated procedure and anesthesia well without complication. Materials: Vilex navicular anatomic locking plate, 3.5mm locking screws x2, nonlocking screw x1, Vitrina Prodense, Cerament G Discharge/Plan: Patient is to maintain splint clean dry and intact. Polar pack/ice behind the knee and elevate on foam ramp or two pillows. Non weight bearing to RLE with crutches and walker. Rx given for Briggs 7.5, Zofran and Motrin 800mg. Obtain post op films, 3 views ankle/foot. Follow up in one week. Tourniquet time (min): 130 Condition: stable Disposition: same day Specimens:: Path: Right PT tendon Right medial ankle bone Right navicular bone Right talus bone Right talus bone culture Complications:: None
--- NOTE | 2023-10-19 16:35 | P.PNANES_ITS ---
[facility] Anesthesia Record Part II Anesthesia Record Part II Discharge Time: 12:52 Destination: Surgical Day Care (OP Surgery) PACU nurse assessment reviewed?: Yes Patient Condition:: Good Anesthesia Complications:: None Swallowing reflex intact?: Yes Airway Patency: Patent Cyanosis?: No Blood Pressure: 148/111 SaO2: 97 Respiratory Rate: 17 Pulse Rate: 86 Temperature: 98.2 F Mental Status: Alert & Oriented Pain level:: 0 Nausea and/or vomitting:: None Intake, IV Amount: 0 Hydration: Adequate
[2023-10-19 16:36] VITALS: BP 148/111; PULSE 86; RESP 17; TEMP 36.8; O2SAT 97
== END 2023-10-14 13:19 | disposition home or self-care (01) ==
PROVIDERS: PCP Nurse Practitioner; Visit Provider Podiatrist
PROC: (CPT 28320; principal; 2023-10-14 08:45)
DX: S92.251K Displaced fracture of navicular [scaphoid] of right foot, subsequent encounter for fracture with nonunion (principal); M25.571 Pain in right ankle and joints of right foot; M76.821 Posterior tibial tendinitis, right leg; M76.61 Achilles tendinitis, right leg; M87.871 Other osteonecrosis, right ankle; F17.210 Nicotine dependence, cigarettes, uncomplicated; Z79.899 Other long term (current) drug therapy; M65.871 Other synovitis and tenosynovitis, right ankle and foot
CPT/HCPCS: 28320; 28103; 28120; 27625; 27658; 71045; 73600; 73610; 73620; 73630; 76000; 87205; 88304; 96374; C1713; C1776; J2405

== ENCOUNTER 2023-10-20 13:05 | Outpatient (CLI) | payer BC, SELFPAY ==
--- NOTE | 2023-10-20 13:07 | CA_ITS ---
APPROVED REPORT EXAM: Comprehensive 2D, Doppler, and color-flow Echocardiogram Helicopter Specialist: Myrna Gerardo CRT Ht: 6 ft 1 in Wt: 271lbs BSA: 2.45 BP: 130/76 mmHg Indications: Abnormal ECG 2D Dimensions LA Volume 35.10 mL LA Volume Index 14.00 mL/m2 (M/F) 16-34 M-Mode Dimensions RVDd 2.31 cm (0.9-2.6) LA Diam 3.46 cm (1.9-4.0) LVDd 4.97 cm (3.5-5.7) LVDs 3.03 cm (3.5-5.7) IVSd 1.31 cm (0.6-1.1) PWd 0.97 cm (0.6-1.1) EF (Teich) 69.20% FS 39.00% EDV (Teich) 116.60 mL TAPSE 1.93 (<1.7) ESV (Teich) 35.90 mL LV Diastology E Decel Time 147 (160-240 msec) E/A Ratio 1.23 MED A' 9.60 cm/s LAT A' 9.30 cm/s Aortic Valve AO Peak GR. 7.70 mmHg Mitral Valve MV A Velocity 67.0 (40-130 cm/s) E/A Ratio 1.23 Pulmonary Valve PV Peak Velocity 105.0 (50-150 cm/s) Tricuspid Valve TR P. Velocity 198.00 cm/s RAP Estimate 10.00 mmHg RVSP 25.70 mmHg Left Ventricle The left ventricle is normal size. The left ventricular systolic function is normal. The left ventricular ejection fraction is within the normal range. There is normal left ventricular wall thickness. There is normal LV segmental wall motion. The left ventricular diastolic function is normal. LVEF is 55%. Right Ventricle The right ventricle is normal size. The right ventricular systolic function is normal. Atria The left atrium size is normal. The right atrium size is normal. There is no Doppler evidence of interatrial shunt. Aortic Valve The aortic valve opens well. There is no aortic valvular stenosis. No aortic regurgitation is present. Mitral Valve The mitral valve is normal in structure. No evidence of mitral valve stenosis. There is no mitral valve regurgitation noted. Tricuspid Valve The tricuspid valve leaflets are thin and pliable. Trace tricuspid regurgitation. There is insufficient TR jet to estimate RVSP. Pulmonic Valve The pulmonary valve is normal in structure. Trace pulmonic regurgitation. Great Vessels The aortic root is normal in size. The ascending aorta is normal in size. IVC is normal in size and collapses >50% with inspiration. Pericardium There is no pericardial effusion. Other Information Study Quality: Adequate Conclusion Normal biventricular systolic function. No significant valvular stenosis or regurgitation. Electronically signed by : Dipika Pedroza MD 10/22/2023 00:12:53
== END 2023-10-20 23:59 ==
LOC: RT 13:05
PROVIDERS: PCP Nurse Practitioner; Visit Provider Nurse Practitioner
DX: R94.31 Abnormal electrocardiogram [ECG] [EKG] (principal)
CPT/HCPCS: 93306

== ENCOUNTER 2023-11-05 08:35 | Outpatient (CLI) | payer BC, SELFPAY ==
--- NOTE | 2023-11-05 08:38 | XR_ITS ---
FINAL REPORT CLINICAL HISTORY: Postoperative foot pain COMPARISON: 10/14/2023 FINDINGS: RIGHT FOOT 3 views of the right foot were obtained with the patient in a cast. There is an orthopedic plate and screws bridging either an osteotomy or fracture of the tarsal navicular. The overall appearance is stable since the prior exam. No acute bony abnormality is identified. Visualized joint spaces are normally aligned. Soft tissues are unremarkable. IMPRESSION: Orthopedic plate and screws bridge either an osteotomy or fracture of the tarsal navicular, stable since the prior exam. No new bony abnormality is identified. Reviewed, Interpreted and Dictated by Davi Alvarez MD Transcribed by Rosalind Mehta Authenticated and [facility]
== END 2023-11-05 23:59 ==
LOC: RAD 08:36
PROVIDERS: PCP Nurse Practitioner; Visit Provider Podiatrist
DX: S92.254K Nondisplaced fracture of navicular [scaphoid] of right foot, subsequent encounter for fracture with nonunion (principal); Z98.890 Other specified postprocedural states
CPT/HCPCS: 73630

== ENCOUNTER 2023-11-24 09:39 | Outpatient (CLI) | payer BC, SELFPAY ==
--- NOTE | 2023-11-24 09:43 | XR_ITS ---
FINAL REPORT CLINICAL HISTORY: postop foot COMPARISON: 11/05/2023 FINDINGS: AP, oblique and lateral views of the right foot were obtained. There is a sideplate and screws which bridge a fracture of the tarsal navicular. There is no acute or new fracture or dislocation. The joint spaces are preserved. Soft tissues are normal. IMPRESSION: Side plate and screws bridge a defect in the tarsal navicular, stable since the prior films of 11/05/2023. Reviewed, Interpreted and Dictated by Davi Alvarez MD Transcribed by Rosalind Mehta Authenticated and [facility]
== END 2023-11-24 23:59 ==
PROVIDERS: PCP Nurse Practitioner; Visit Provider Podiatrist
DX: M79.671 Pain in right foot (principal); Z98.890 Other specified postprocedural states
CPT/HCPCS: 73630

== ENCOUNTER 2023-12-15 12:10 | Outpatient (CLI) | payer BC, SELFPAY ==
--- NOTE | 2023-12-15 12:14 | XR_ITS ---
FINAL REPORT CLINICAL HISTORY: Postoperative COMPARISON: 11/24/2023 FINDINGS: Right foot Three views were obtained. There are postoperative changes of the navicular bone with screw plate and multiple screws, stable. The navicular fracture is not well seen, likely due to interval healing. No new bony abnormality is identified. IMPRESSION: Postsurgical changes as above. Reviewed, Interpreted and Dictated by Fred Salmon III, MD Transcribed by Venecia Grossman Authenticated and [facility]
== END 2023-12-15 23:59 | disposition home or self-care (01) ==
LOC: RAD 12:10
PROVIDERS: PCP Nurse Practitioner; Visit Provider Podiatrist
DX: Z98.890 Other specified postprocedural states (principal); M79.671 Pain in right foot
CPT/HCPCS: 73630

== ENCOUNTER 2024-01-26 16:54 | Outpatient (CLI) | payer BC, SELFPAY ==
--- NOTE | 2024-01-26 16:58 | XR_ITS ---
FINAL REPORT CLINICAL HISTORY: postop COMPARISON: 10/14/2023 FINDINGS: Three views show no evidence of acute displaced fracture or dislocation of the visualized bony architecture. The joint spaces appear normal. IMPRESSION: Unremarkable exam. Reviewed, Interpreted and Dictated by Kaylah Nassar MD Transcribed by Venecia Grossman Authenticated and [facility]
--- NOTE | 2024-01-26 16:58 | XR_ITS ---
FINAL REPORT CLINICAL HISTORY: postop COMPARISON: 12/15/2023 FINDINGS: Three views show no evidence of acute displaced fracture or dislocation of the visualized bony architecture. There are postoperative changes of the navicular bone. The bones are osteopenic. There are stable degenerative changes of the midfoot and 1st metatarsophalangeal joint. IMPRESSION: No significant changes. Reviewed, Interpreted and Dictated by Kaylah Nassar MD Transcribed by Venecia Grossman Authenticated and [facility]
== END 2024-01-26 23:59 | disposition home or self-care (01) ==
LOC: RAD 16:55
PROVIDERS: PCP Nurse Practitioner; Visit Provider Podiatrist
DX: Z98.890 Other specified postprocedural states (principal); M25.571 Pain in right ankle and joints of right foot; M79.671 Pain in right foot
CPT/HCPCS: 73610; 73630

== ENCOUNTER 2024-02-12 13:07 | Outpatient (CLI) | payer BC, SELFPAY ==
--- NOTE | 2024-02-12 13:08 | CT_ITS ---
FINAL REPORT TECHNIQUE: Thin section axial CT images with coronal and sagittal reformats were performed. This study was performed with techniques to keep radiation doses as low as reasonably achievable (ALARA). Individualized dose reduction techniques using automated exposure control or adjustment of mA and/or kV according to the patient''s size were employed. CLINICAL HISTORY: Right Foot Pain COMPARISON: Plain films dated 11/05/2023 FINDINGS: CT RIGHT FOOT: There is a screw plate and screws present in the navicular. No fracture line is now identified when compared to the prior film of October. There is worsening osteopenia. The lateral navicular screw extends beyond the cortex of the navicular to the articulation with the lateral cuneiform. It may extend slightly into the lateral cuneiform. There is subcutaneous edema present, greatest involving the medial soft tissues of the ankle. There is a dilated presumed venous structure in the medial soft tissues of the ankle, with adjacent stranding, that may represent a thrombosed vein. IMPRESSION: Worsening osteopenia. The lateral navicular screw extends beyond the cortex to the articulation with the lateral cuneiform, and may extend slightly into the lateral cuneiform. There is a dilated presumed venous structure in the medial soft tissues of the ankle with adjacent stranding, that may represent a thrombosed vein. Recommend ultrasound correlation for further evaluation. Reviewed, Interpreted and Dictated by Fred Salmon III, MD Transcribed by Rosalind Mehta Authenticated and [facility]
== END 2024-02-12 23:59 | disposition home or self-care (01) ==
LOC: RAD 13:08
PROVIDERS: PCP Nurse Practitioner; Visit Provider Podiatrist
DX: M79.671 Pain in right foot (principal); M77.41 Metatarsalgia, right foot; S92.254S Nondisplaced fracture of navicular [scaphoid] of right foot, sequela
CPT/HCPCS: 73700

== ENCOUNTER 2024-03-01 17:00 | Outpatient (RCR) | payer BC, SELFPAY ==
--- NOTE | 2023-12-21 14:36 | HMH.PTOPEV ---
PT Outpatient Evaluation Rehab PT Outpatient Evaluation Start: 12/21/23 13:10 Freq: Status: Active Protocol: Document 12/21/23 13:11 PDESEROUX (Rec: 12/21/23 14:36 [email or web address] [id number]) E-signed By Brian Saxena, PT Outpatient Therapy Subjective History Subjective History Pt. is a 33 year old male who presents to [facility] Out[facility] Physical Therapy Services in [place] for the initial evaluation this date( 12/21/23) w/ c/o subacute and constant RLE ankle/ft. post- surgical P!, edema, and tingling S/P RLE ankle/ft. surgery on 10/14/23. Pt. reports his posterior tibialis tendon was hyperextended and had a lateral tear. Pt. also reports having S/P hardware installed in his foot secondary to chronic injuries creating old fractures and increased bone edema. Pt. currently c/o post-surgical symptoms including increased edema, sharp and shoot pain, and increased tingling. Pt. reports symptoms will worsen w / activity including ambulation, standing, and just keeping my foot down. Pt . reports having some symptom relief w/ resting and icing. Recent diagnostic imaging indicates 75% PWB w/ CAM bt. walker and bilateral axillary crutches per pt. report per Surgeon. Pt. reports he was 25 -50% PWB w/ CAM bt. and ORIN for the initial 2-3 wks., and now has been 75% PWB for x2wks . Pt. RTMD tomorrow 12/22/23. Pt. reports being instructed to perform ankle circles, pumps, and toe lifts per Surgeon. Pt. reports he is currently off occupational duties at this time secondary to S/P. Current medications include Gabapentin and Ibuprofen. PMH includes S/P RLE knee cartilage replacement . New diagnosis of cancer in past 12 No months? Chief Complaint Pain,Spasms,Stiff,Swelling, Gives out/Unstable,Paresthesia ,Weakness Symptom Type Ache,Throb,Sharp,Dull,Stabbing ,Burning,Numbness,Tingling, Shooting Symptoms Relieved By Rest/Positioning,Ice,Brace/ Support,Prescription Meds Symptoms Aggravated By Sitting,Standing,Bending/ Stooping,Physical Activity, Twisting,Walking Prior Functional Limitations None Current Functional Limitations Housework,Dressing,Driving, Sleeping,Standing,Sitting, Squatting,Recreation Activity, Walking,Stairs,Bending/ Stooping Symptom Description Constant but Variable,Activity Dependent Level of pain today (0-10) 4 Pain scale - at its best (0-10) 3 Pain scale - at its worst (0-10) 8 Ankle/Foot Eval Gait Observation General Gait Pattern Observation Antalgic Gait,Decrease Weight Bear (R),Decrease Stride Lngth (L) Assistive Device Ambulation Assistive Device Axillary Crutches Palpation Tenderness right Ankle/Foot Palpation Findings Tenderness Ankle/Foot Palpation Overall Comment grade 4 +TTP to post. tib. tendon and navicular bone ATF TTP negative PTF TTP negative CF TTP negative Deltoid ligament TTP negative ROM Ankle/Foot Dorsiflexion w/Knee Extended +4 Active Range Motion (degrees) Ankle/Foot Dorsiflexion w/Knee Extended -5 Passive Range (degrees) Ankle/Foot Plantar Flexion Active Range 34 of Motion (degrees) Ankle/Foot Plantar Flexion Passive Range 36 of Motion (degrees) Ankle/Foot Eversion Active Range of 13 Motion (degrees) Ankle/Foot Eversion Passive Range of 16 Motion (degrees) Ankle/Foot Inversion Active Range of 25 Motion (degrees) Ankle/Foot Inversion Passive Range of 27 Motion (degrees) Ankle/Foot ROM Limitations Soft Tissue Tightness,Muscle Weakness,Pain Accessory Movements Ankle Accessory Movements that Elicit Talonavicular [place],Talar Symptoms Distraction,Talar Compression MMT right Ankle Dorsiflexion Strength Grade 3+ Fair+ Ankle Plantarflexion Strength Grade 3+ Fair+ Foot Eversion Strength Grade 3+ Fair+ Foot Inversion Strength Grade 3+ Fair+ Ankle Dorsiflexors Muscle Tone Severe Hypertonicity Description Special Tests Ankle Anterior Drawer Test Negative Right Ankle Posterior Drawer Test Negative Right Neuro tests Achilles Tendon (R) 2+ normal sensation to monofilament Yes: marion-surgical incision Outpatient Therapy Assessment Impairments Problems/Impairmments Palpation Tenderness,Impaired Range of Motion,Impaired Strength,Impaired Transfers, Impaired Gait Pattern,Impaired Walking,Impaired Standing, Impaired Sitting,Impaired Driving,Impaired Dressing, Impaired Household Care, Impaired Stair Climbing, Impaired Incline Stepping, Impaired Stepping on Uneven Surface,Impaired Squatting, Impaired Work Activities, Impaired Balance,Increased Edema,Subjective C/O Pain, Impaired Self Care/Self Management Prognosis Rehab Potential Good Comment w/ HEP compliancy Clinical Impression Consistent with Diagnosis Yes Consistent with S/P RLE ankle/ft. P! and edema Short Term Goals Number of Weeks 2 Decreased Palpation Tenderness Yes: grade 1-2 +TTP to TTP assessment above Decrease Subjective C/O Pain Yes: worse:12/17 Patient to be Ind w/ HEP Yes Shelter Goals Number of Weeks 6-8 Decreased Palpation Tenderness Yes: grade 1 +TTP to TTP assessment above Increase Range of Motion Yes: RLE ankle/ft. A/PROM WNL grossly Increase Strength Yes: 4+ to 5/5 RLE ankle/ft. MMT scores grossly Improve Gait Pattern without Assistive Yes Device Increase Ability to Walk Yes Increase Ability to Stand Yes Increase Ability to Drive/Ride in Car Yes Improve Ability to Dress Self Yes: Pt. will be able to don/ doff socks/shoes w/o difficulty Improve Ability to Climb Stairs Yes Improve LEFI Score Yes Decrease Edema Yes Decrease Subjective C/O Pain Yes: worse:-09/19 Patient to be Ind w/ Advanced HEP Yes Outpatient Therapy Plan of Care Treatment Plan May Include Therapeutic Exercise Including Home Yes Exercise Program Manual Therapy Techniques Yes Neuromuscular Re-education Yes Therapeutic Activities to Return to Yes Previous Functional/Work Level Gait Training Yes ADL/Self Care Education Yes Dry Needling Yes Thermal Modalities Yes Electrical Stimulation Yes Ultrasound/Phonophoresis Yes Iontophoresis Yes Vasopneumatic Compression Pump Yes Massage Yes Eval/Re-Eval Yes Frequency Times per week 2-3 Duration Number of Weeks 6-8 Addendums This patient is a candidate for social No or vocational rehab? Patient/Guardian verbally acknowledges Yes understanding of treatment program and consents to further treatment? Patient/Guardian verbally acknowledges Yes understanding of diagnosis, prognosis and goals for treatment? Eval Complexity PT Charges 22446 - Low Complexity Shoulder/Elbow Eval Shoulder Objective Measurements Elbow Objective Measurements PHYSICIAN CERTIFICATION: I certify the specified therapy services for Michael Patrick are required, authorized, and reviewed every 30 days.
== END 2024-03-08 08:55 | disposition home or self-care (01) ==
LOC: PT 17:00
PROVIDERS: Visit Provider Podiatrist
DX: R60.0 Localized edema (principal); M25.571 Pain in right ankle and joints of right foot; M79.671 Pain in right foot; G89.29 Other chronic pain
CPT/HCPCS: 97010; 97014; 97110; 97112; 97163; 97164; 97530; G0283

== ENCOUNTER 2024-06-21 08:08 | Outpatient (CLI) | payer BC, SELFPAY ==
--- NOTE | 2024-06-21 10:15 | XR_ITS ---
FINAL REPORT CLINICAL HISTORY: f/u on right navicular fracture COMPARISON: 01/26/2024 FINDINGS: RIGHT FOOT 3 views of the right foot were obtained. There are postoperative changes of the navicular with screw plate and screws in place. There is a pes planus deformity. Visualized joint spaces are normally aligned. Soft tissues are unremarkable. IMPRESSION: Postoperative changes as above. Reviewed, Interpreted and Dictated by Fred Salmon III, MD Transcribed by Jazlyn Dos Santos Authenticated and . [facility]
== END 2024-06-21 23:59 | disposition home or self-care (01) ==
LOC: RAD 08:09
PROVIDERS: PCP Nurse Practitioner; Visit Provider Podiatrist
DX: M79.671 Pain in right foot (principal); S92.254K Nondisplaced fracture of navicular [scaphoid] of right foot, subsequent encounter for fracture with nonunion; S92.254S Nondisplaced fracture of navicular [scaphoid] of right foot, sequela
CPT/HCPCS: 73630